=== PATIENT | male | born 1975 | race Caucasian/White ===

== ENCOUNTER 2019-01-31 10:06 | Emergency (ER) | payer MEDICARE, OTHER ==
[~2019-01-31] VITALS: Ht 188 cm; Wt 143.8 kg
[2019-01-31] MEDS ORDERED: CEPH500 PO (10:58)
[2019-01-31] MEDS ORDERED: Bactrim Ds Tab1 EACH PO (10:58)
== END 2019-01-31 11:06 | disposition home or self-care (01) ==
LOC: ER 10:06
DX: L02.31 Cutaneous abscess of buttock (principal)
CPT/HCPCS: 10060; 99283-25

== ENCOUNTER → 2019-10-05 | Outpatient (CLI) | payer MEDICARE, OTHER ==
[~2019-10-05] MED LIST: Bactrim Ds Tab1 EACH PO; CEPH500 PO
== END ==
LOC: LAB SHORT 13:34 → LAB EV 13:34
DX: S81.802A Unspecified open wound, left lower leg, initial encounter (principal)
CPT/HCPCS: 87070; 87075; 87077; 87147; 87186; 87205

== ENCOUNTER → 2019-12-26 | Outpatient (CLI) | payer MEDICARE, OTHER | LOC: LAB EV 14:30 → LAB SHORT 14:30 | DX: S81.802D Unspecified open wound, left lower leg, subsequent encounter (principal) | CPT/HCPCS: 87070; 87075; 87077; 87147; 87186; 87205 ==

== ENCOUNTER 2020-02-02 00:12 | Day surgery (SDC) | payer MEDICARE, OTHER | END 2020-02-02 22:49 | disposition home or self-care (01) | LOC: WOUND 00:12 | DX: L97.822 Non-pressure chronic ulcer of other part of left lower leg with fat layer exposed (principal); I83.90 Asymptomatic varicose veins of unspecified lower extremity; I73.9 Peripheral vascular disease, unspecified ==

== ENCOUNTER 2020-02-21 00:38 | Day surgery (SDC) | payer MEDICARE, OTHER | END 2020-02-21 22:42 | disposition home or self-care (01) | LOC: WOUND 00:38 | DX: L97.822 Non-pressure chronic ulcer of other part of left lower leg with fat layer exposed (principal); I83.90 Asymptomatic varicose veins of unspecified lower extremity; I73.9 Peripheral vascular disease, unspecified; I10 Essential (primary) hypertension; Z79.899 Other long term (current) drug therapy ==

== ENCOUNTER 2020-02-28 00:25 | Day surgery (SDC) | payer MEDICARE, OTHER | END 2020-02-28 22:40 | disposition home or self-care (01) | LOC: WOUND 00:25 | DX: L97.822 Non-pressure chronic ulcer of other part of left lower leg with fat layer exposed (principal); I83.90 Asymptomatic varicose veins of unspecified lower extremity; I73.9 Peripheral vascular disease, unspecified ==

== ENCOUNTER 2020-03-12 00:35 | Day surgery (SDC) | payer MEDICARE, OTHER | END 2020-03-12 22:44 | disposition home or self-care (01) | LOC: WOUND 00:35 | DX: L97.822 Non-pressure chronic ulcer of other part of left lower leg with fat layer exposed (principal); I83.90 Asymptomatic varicose veins of unspecified lower extremity; I73.9 Peripheral vascular disease, unspecified ==

== ENCOUNTER 2020-03-19 00:08 | Day surgery (SDC) | payer MEDICARE, OTHER | END 2020-03-19 22:39 | disposition home or self-care (01) | LOC: WOUND 00:08 | DX: L97.822 Non-pressure chronic ulcer of other part of left lower leg with fat layer exposed (principal); I83.90 Asymptomatic varicose veins of unspecified lower extremity; I73.9 Peripheral vascular disease, unspecified ==

== ENCOUNTER 2020-03-26 05:28 | Day surgery (SDC) | payer MEDICARE, OTHER | END 2020-03-26 23:03 | disposition home or self-care (01) | LOC: WOUND 05:28 | DX: I83.028 Varicose veins of left lower extremity with ulcer other part of lower leg (principal); L97.822 Non-pressure chronic ulcer of other part of left lower leg with fat layer exposed; I96 Gangrene, not elsewhere classified ==

== ENCOUNTER 2020-04-02 01:08 | Day surgery (SDC) | payer MEDICARE, OTHER | END 2020-04-02 23:20 | disposition home or self-care (01) | LOC: WOUND 01:08 | DX: S81.802A Unspecified open wound, left lower leg, initial encounter (principal); X58.XXXA Exposure to other specified factors, initial encounter ==

== ENCOUNTER 2020-04-09 00:45 | Day surgery (SDC) | payer MEDICARE, OTHER | END 2020-04-09 22:47 | disposition home or self-care (01) | LOC: WOUND 00:45 | DX: I96 Gangrene, not elsewhere classified (principal); L97.822 Non-pressure chronic ulcer of other part of left lower leg with fat layer exposed; L40.9 Psoriasis, unspecified; I10 Essential (primary) hypertension; F25.9 Schizoaffective disorder, unspecified; F84.5 Asperger's syndrome; I49.9 Cardiac arrhythmia, unspecified ==

== ENCOUNTER 2020-04-17 00:39 | Day surgery (SDC) | payer MEDICARE, OTHER | END 2020-04-17 12:00 | disposition home or self-care (01) | LOC: WOUND 00:39 | DX: I83.028 Varicose veins of left lower extremity with ulcer other part of lower leg (principal); I96 Gangrene, not elsewhere classified; L97.822 Non-pressure chronic ulcer of other part of left lower leg with fat layer exposed; L40.9 Psoriasis, unspecified; F84.5 Asperger's syndrome; I10 Essential (primary) hypertension; I49.9 Cardiac arrhythmia, unspecified; F25.0 Schizoaffective disorder, bipolar type; Z79.899 Other long term (current) drug therapy ==

== ENCOUNTER 2020-04-19 01:31 | Day surgery (SDC) | payer MEDICARE, OTHER | END 2020-04-19 23:00 | disposition home or self-care (01) | LOC: WOUND 01:31 | DX: L97.822 Non-pressure chronic ulcer of other part of left lower leg with fat layer exposed (principal); I83.90 Asymptomatic varicose veins of unspecified lower extremity; I73.9 Peripheral vascular disease, unspecified; R60.9 Edema, unspecified ==

== ENCOUNTER 2020-04-26 00:54 | Day surgery (SDC) | payer MEDICARE, OTHER | END 2020-04-26 23:12 | disposition home or self-care (01) | LOC: WOUND 00:54 | DX: L97.822 Non-pressure chronic ulcer of other part of left lower leg with fat layer exposed (principal); I83.90 Asymptomatic varicose veins of unspecified lower extremity; I73.9 Peripheral vascular disease, unspecified ==

== ENCOUNTER 2020-04-30 00:55 | Day surgery (SDC) | payer MEDICARE, OTHER | END 2020-04-30 23:01 | disposition home or self-care (01) | LOC: WOUND 00:55 | DX: I83.028 Varicose veins of left lower extremity with ulcer other part of lower leg (principal); L97.822 Non-pressure chronic ulcer of other part of left lower leg with fat layer exposed; I96 Gangrene, not elsewhere classified; L40.9 Psoriasis, unspecified; F25.9 Schizoaffective disorder, unspecified; I49.9 Cardiac arrhythmia, unspecified; I10 Essential (primary) hypertension ==

== ENCOUNTER 2020-05-08 00:57 | Day surgery (SDC) | payer MEDICARE, OTHER | END 2020-05-08 22:44 | disposition home or self-care (01) | LOC: WOUND 00:57 | DX: I83.028 Varicose veins of left lower extremity with ulcer other part of lower leg (principal); L97.822 Non-pressure chronic ulcer of other part of left lower leg with fat layer exposed; I96 Gangrene, not elsewhere classified; L03.116 Cellulitis of left lower limb; I10 Essential (primary) hypertension; L40.9 Psoriasis, unspecified; I49.9 Cardiac arrhythmia, unspecified; F25.0 Schizoaffective disorder, bipolar type; F84.5 Asperger's syndrome; Z79.899 Other long term (current) drug therapy | CPT/HCPCS: 87070; 87075; 87077; 87147; 87186; 87205 ==

== ENCOUNTER 2020-05-14 00:53 | Day surgery (SDC) | payer MEDICARE, OTHER | END 2020-05-14 23:35 | disposition home or self-care (01) | LOC: WOUND 00:53 | DX: I83.018 Varicose veins of right lower extremity with ulcer other part of lower leg (principal); I83.028 Varicose veins of left lower extremity with ulcer other part of lower leg; L97.822 Non-pressure chronic ulcer of other part of left lower leg with fat layer exposed; L97.812 Non-pressure chronic ulcer of other part of right lower leg with fat layer exposed; L03.116 Cellulitis of left lower limb; I96 Gangrene, not elsewhere classified; I10 Essential (primary) hypertension; F84.5 Asperger's syndrome; F25.9 Schizoaffective disorder, unspecified; L40.9 Psoriasis, unspecified ==

== ENCOUNTER 2020-05-20 01:24 | Day surgery (SDC) | payer MEDICARE, OTHER | END 2020-05-20 22:48 | disposition home or self-care (01) | LOC: WOUND 01:24 | DX: L03.116 Cellulitis of left lower limb (principal); L08.9 Local infection of the skin and subcutaneous tissue, unspecified; L97.822 Non-pressure chronic ulcer of other part of left lower leg with fat layer exposed; I83.90 Asymptomatic varicose veins of unspecified lower extremity; I73.9 Peripheral vascular disease, unspecified; I10 Essential (primary) hypertension; Z79.899 Other long term (current) drug therapy | CPT/HCPCS: G0463 ==

== ENCOUNTER 2020-05-27 00:18 | Day surgery (SDC) | payer MEDICARE, OTHER | END 2020-05-27 22:54 | disposition home or self-care (01) | LOC: WOUND 00:18 | DX: L03.116 Cellulitis of left lower limb (principal); L08.9 Local infection of the skin and subcutaneous tissue, unspecified; L97.822 Non-pressure chronic ulcer of other part of left lower leg with fat layer exposed; I83.90 Asymptomatic varicose veins of unspecified lower extremity; I73.9 Peripheral vascular disease, unspecified; I10 Essential (primary) hypertension; Z79.899 Other long term (current) drug therapy ==

== ENCOUNTER 2020-06-03 00:13 | Day surgery (SDC) | payer MEDICARE, OTHER | END 2020-06-03 22:51 | disposition home or self-care (01) | LOC: WOUND 00:13 | DX: I83.028 Varicose veins of left lower extremity with ulcer other part of lower leg (principal); L97.822 Non-pressure chronic ulcer of other part of left lower leg with fat layer exposed; I96 Gangrene, not elsewhere classified; L03.116 Cellulitis of left lower limb; S80.822A Blister (nonthermal), left lower leg, initial encounter; F84.5 Asperger's syndrome; F25.9 Schizoaffective disorder, unspecified; I10 Essential (primary) hypertension; L40.9 Psoriasis, unspecified; X58.XXXA Exposure to other specified factors, initial encounter ==

== ENCOUNTER 2020-06-10 00:21 | Day surgery (SDC) | payer MEDICARE, OTHER | END 2020-06-10 23:45 | disposition home or self-care (01) | LOC: WOUND 00:21 | DX: L03.116 Cellulitis of left lower limb (principal); L08.9 Local infection of the skin and subcutaneous tissue, unspecified; L97.822 Non-pressure chronic ulcer of other part of left lower leg with fat layer exposed; I83.90 Asymptomatic varicose veins of unspecified lower extremity; I73.9 Peripheral vascular disease, unspecified; I10 Essential (primary) hypertension; Z79.899 Other long term (current) drug therapy | CPT/HCPCS: G0463 ==

== ENCOUNTER 2020-06-24 00:39 | Day surgery (SDC) | payer OTHER | END 2020-06-24 22:52 | disposition home or self-care (01) | LOC: WOUND 00:39 | DX: L97.822 Non-pressure chronic ulcer of other part of left lower leg with fat layer exposed (principal); I83.90 Asymptomatic varicose veins of unspecified lower extremity; I73.9 Peripheral vascular disease, unspecified; I10 Essential (primary) hypertension | CPT/HCPCS: G0463 ==

== ENCOUNTER 2020-07-04 00:15 | Day surgery (SDC) | payer OTHER | END 2020-07-04 23:53 | disposition home or self-care (01) | LOC: WOUND 00:15 | DX: I96 Gangrene, not elsewhere classified (principal); L97.822 Non-pressure chronic ulcer of other part of left lower leg with fat layer exposed; I83.90 Asymptomatic varicose veins of unspecified lower extremity; F25.9 Schizoaffective disorder, unspecified; F84.5 Asperger's syndrome; I10 Essential (primary) hypertension; I49.9 Cardiac arrhythmia, unspecified; L40.9 Psoriasis, unspecified | CPT/HCPCS: G0463 ==

== ENCOUNTER 2020-07-11 01:30 | Day surgery (SDC) | payer OTHER | END 2020-07-11 22:38 | disposition home or self-care (01) | LOC: WOUND 01:30 | DX: L97.822 Non-pressure chronic ulcer of other part of left lower leg with fat layer exposed (principal); I83.90 Asymptomatic varicose veins of unspecified lower extremity; I73.9 Peripheral vascular disease, unspecified | CPT/HCPCS: G0463 ==

== ENCOUNTER 2020-07-18 00:21 | Day surgery (SDC) | payer OTHER | END 2020-07-18 23:32 | disposition home or self-care (01) | LOC: WOUND 00:21 | DX: L97.822 Non-pressure chronic ulcer of other part of left lower leg with fat layer exposed (principal); I83.90 Asymptomatic varicose veins of unspecified lower extremity; I73.9 Peripheral vascular disease, unspecified; I10 Essential (primary) hypertension; F25.9 Schizoaffective disorder, unspecified; L40.9 Psoriasis, unspecified | CPT/HCPCS: A9270 ==

== ENCOUNTER 2020-07-25 00:17 | Day surgery (SDC) | payer OTHER | END 2020-07-25 23:45 | disposition home or self-care (01) | LOC: WOUND 00:17 | DX: L03.116 Cellulitis of left lower limb (principal); L97.822 Non-pressure chronic ulcer of other part of left lower leg with fat layer exposed; L02.416 Cutaneous abscess of left lower limb; I83.90 Asymptomatic varicose veins of unspecified lower extremity; I73.9 Peripheral vascular disease, unspecified | CPT/HCPCS: A9270; G0463 ==

== ENCOUNTER 2020-08-01 00:27 | Day surgery (SDC) | payer OTHER | END 2020-08-01 22:50 | disposition home or self-care (01) | LOC: WOUND 00:27 | DX: L97.822 Non-pressure chronic ulcer of other part of left lower leg with fat layer exposed (principal); I83.92 Asymptomatic varicose veins of left lower extremity; I73.9 Peripheral vascular disease, unspecified; F25.9 Schizoaffective disorder, unspecified; F84.5 Asperger's syndrome; I10 Essential (primary) hypertension | CPT/HCPCS: A9270; G0463 ==

== ENCOUNTER 2020-08-08 00:25 | Day surgery (SDC) | payer OTHER | END 2020-08-08 23:50 | disposition home or self-care (01) | LOC: WOUND 00:25 | DX: L97.822 Non-pressure chronic ulcer of other part of left lower leg with fat layer exposed (principal); I83.90 Asymptomatic varicose veins of unspecified lower extremity; I73.9 Peripheral vascular disease, unspecified; I10 Essential (primary) hypertension | CPT/HCPCS: A9270; G0463 ==

== ENCOUNTER → 2020-10-07 | Outpatient (CLI) | payer OTHER | END | disposition home or self-care (01) | LOC: LAB EV 10:37 → LAB SHORT 10:37 | DX: L08.9 Local infection of the skin and subcutaneous tissue, unspecified (principal) | CPT/HCPCS: 87070; 87077; 87147; 87186; 87205 ==

== ENCOUNTER 2022-04-05 07:28 | Emergency (ER) | payer OTHER ==
[~2022-04-05] VITALS: Ht 185.4 cm; Wt 147.4 kg
[2022-04-05] MEDS ORDERED: LAMO100 PO (07:50)
[2022-04-05] MEDS ORDERED: ESCI10 PO (07:51)
[2022-04-05] MEDS ORDERED: BENZ1 PO (07:51)
[2022-04-05] MEDS ORDERED: Loxapine25 MG PO (07:51)
[2022-04-05] MEDS ORDERED: LOSA25 PO (07:52)
[2022-04-05] MEDS ORDERED: ERYTHROMYCIN250 M1 PO (08:57)
[2022-04-05] MEDS ORDERED: CLOBETTC TOP (08:57)
== END 2022-04-05 09:03 | disposition home or self-care (01) ==
LOC: ER 07:28
DX: R21 Rash and other nonspecific skin eruption (principal)
CPT/HCPCS: 99282

== ENCOUNTER → 2023-05-12 | Outpatient (CLI) | payer OTHER ==
[~2023-05-12] MED LIST changes: +BENZ1 PO; +CLOBETTC TOP; +ERYTHROMYCIN250 M1 PO; +ESCI10 PO; +LAMO100 PO; +LOSA25 PO; +Loxapine25 MG PO
[2023-05-12 13:14] LABS: BASOPHILS ABSOLUTE AUTO 0.06 K/mm3 (0.00-0.23); BASOPHILS PERCENT AUTO 1 % (0-2); EOSINOPHILS ABSOLUTE AUTO 0.27 K/mm3 (0.00-0.68); EOSINOPHILS PERCENT AUTO 4 % (0-6); Hematocrit 42.5 % (37.0-53.0); Hemoglobin 14.1 g/dL (13.5-17.5); IMMATURE GRAN ABSOLUTE AUTO 0.03 K/mm3 (0.00-0.10); IMMATURE GRAN PERCENT AUTO 0 % (0-1); LYMPHOCYTES ABSOLUTE AUTO 2.01 K/mm3 (0.84-5.20); LYMPHOCYTES PERCENT AUTO 26 % (21-46); MONOCYTES PERCENT AUTO 9 % (4-13); Mean Corpuscular HGB 30.3 pg (26.0-34.0); Mean Corpuscular HGB Conc 33.2 g/dL (31.5-36.5); Mean Corpuscular Volume 91 fL (80-100); Mean Platelet Volume 10.1 fL (9.1-12.4); NEUTROPHILS ABSOLUTE AUTO 4.75 K/mm3 (1.96-9.15); NEUTROPHILS PERCENT AUTO 61 % (41-73); Platelet Count 247 K/mm3 (150-400); RDW Coefficient Variation 12.9 % (11.7-14.2); RDW Standard Deviation 42.7 fL (35.1-46.3); Red Blood Cell Count 4.66 M/mm3 (4.30-5.90); White Blood Cell Count 7.82 K/mm3 (4.00-11.30)
[2023-05-12 13:31] LABS: Albumin, Blood 3.8 g/dL (3.4-5.0); Albumin/Globulin Ratio 0.9 (0.8-1.8); Bilirubin, Total 0.8 mg/dL (0.1-1.0); Bun/Creatinine Ratio 16.2 (12.0-20.0); Calcium, Blood 9.1 mg/dL (8.5-10.1); Creatinine, Blood 0.87 mg/dL (0.60-1.20); Globulin, Blood 4.2 g/dL (2.2-4.0)
== END | disposition home or self-care (01) ==
LOC: LAB SHORT 09:00 → LAB 09:00
PROVIDERS: Nurse Practitioner Psychiatric/Mental Health
DX: F20.0 Paranoid schizophrenia (principal)
CPT/HCPCS: 80053; 85025

== ENCOUNTER → 2023-10-12 | Outpatient (CLI) | payer OTHER | END | disposition home or self-care (01) | LOC: LAB SHORT 13:51 → LAB 13:51 | DX: L30.8 Other specified dermatitis (principal) | CPT/HCPCS: 88305; 88312 ==

== ENCOUNTER → 2023-10-12 | Outpatient (CLI) | payer OTHER | END | disposition home or self-care (01) | LOC: LAB SHORT 08:55 → LAB 08:55 | DX: M75.90 Shoulder lesion, unspecified, unspecified shoulder (principal) | CPT/HCPCS: 87070; 87075; 87077; 87147; 87186; 87205 ==

== ENCOUNTER 2023-12-23 08:25 | Emergency (ER) | payer OTHER ==
[~2023-12-23] VITALS: Ht 182.9 cm; Wt 99.8 kg
[2023-12-23 08:56] VITALS: BP 122/82
[2023-12-23] MEDS ORDERED: TRIDERM28.4 GM TOP (09:32)
== END 2023-12-23 09:17 | disposition home or self-care (01) ==
LOC: ER 08:25
DX: T65.811A Toxic effect of latex, accidental (unintentional), initial encounter (principal); L23.5 Allergic contact dermatitis due to other chemical products
CPT/HCPCS: 99282

== ENCOUNTER 2024-01-03 21:35 | Emergency (ER) | payer OTHER ==
[~2024-01-03] VITALS: Ht 185.4 cm; Wt 144.7 kg
[~2024-01-03 21:35] MED LIST changes: +TRIDERM28.4 GM TOP
[2024-01-03 21:47] VITALS: BP 146/80
[2024-01-04] MEDS ORDERED: PERM5TC TOP (00:21)
== END 2024-01-04 00:29 | disposition home or self-care (01) ==
LOC: ER 21:35
DX: B86 Scabies (principal); Z79.899 Other long term (current) drug therapy
CPT/HCPCS: 99282

== ENCOUNTER 2024-01-09 10:35 | Emergency (ER) | payer OTHER ==
[~2024-01-09] VITALS: Ht 185.4 cm; Wt 144.7 kg
[~2024-01-09 10:35] MED LIST changes: +PERM5TC TOP
[2024-01-09 10:44] VITALS: BP 139/93
[2024-01-09] MEDS ORDERED: Permethrin60 GM TOP (10:50)
== END 2024-01-09 10:53 | disposition home or self-care (01) ==
LOC: ER 10:35
DX: B86 Scabies (principal); Z79.899 Other long term (current) drug therapy
CPT/HCPCS: 99282